=== PATIENT | male | born 1985 | race Caucasian/White ===

== ENCOUNTER 2019-03-02 10:48 | Outpatient (RCR) | payer MEDICARE, MEDICAID, SELFPAY ==
--- NOTE | 2019-03-02 11:52 | HP.PTEVAL ---
Patient's Visit Information DESTINEE CHOE is a 33 year old M referred to Physical Therapy by Delvis Shah MD with a diagnosis of CEREBRAL PALSY. Date of Evaluation: 03/02/19 Physical Therapist: Kahlil Sullivan PT, Cert MDT, OCS - Visit Plan Frequency: 1 VISIT Plan: RECOMMEND NEW MANUAL W/C .PATIENT IS DEPENDANT WITH ALL TRANSFERS,ADL'S AND SELF HYGINE. - Subjective Findings: This 33 y/o male presents to physical therapy with cerebral palsy. This patient is canidate for new w/c. Pateint is non verbal. Patient is dependant with all transfers, bed moblity with min WB using pivot w/c. Non ambulatory ,in w/c all day/ Requires dependant with all ADL'S bathing,feeding,dressing.Doesnt express pain. HOME SITUATUION: Foster home - Objective POSTURE: posterior pelvic tilt,scoliosis ,round shoulders,head tilted. BED MOBLITY: dependant supine-sit. TRANSFERS: dependant pivot with min WB with person. SITTING: absent. MMT BUE/LE patient is able to move UE with commond other 0/5 unable to repond with direction. NEURO: spastic lower extremities. FLEXABLITY: hams mod severe tight,hip add severe tight. PROM: knee flexion contractures left 50 degrees,right 40 degrees,knee flexion 115 degrees, hip flexion 110 degrees,DF 0 degrees,hip abduction 15 degrees. PROM: BUE WFL - Goals Goal 1:: RECOMMEND MANUAL W/C. - Rehabilitation Potential Physical Therapy Diagnosis: This patient has cerebral palsy with and dependant with all ADL'S,transfers,self hygine,non ambulatory thus requires new manual w/c. Rehabilitation Potential: Fair - Anticipated Interventions Patient/Client Instruction: Educate patient on: Plan of Care Other: W/C Thank you for the opportunity to evaluate your patient. For Medicare and Medicare HMO plans, please review the plan of care and approve it. It will need to be FAXED BACK to us at [phone] for Medicare purposes. For Medicare only, by signing this I certify the plan of care. Please let me know if there are questions or concerns regarding this plan of care. Physician Signature: Date:
== END 2019-03-02 19:00 | disposition home or self-care (01) ==
LOC: PT 10:48
PROVIDERS: Family Provider Family Medicine; PCP Family Medicine; Referring Provider Family Medicine; Visit Provider Family Medicine
DX: G80.9 Cerebral palsy, unspecified (principal)
CPT/HCPCS: 97163

== ENCOUNTER → 2019-05-19 13:59 | Outpatient (CLI) | payer MEDICARE, MEDICAID, SELFPAY ==
[2019-05-19 14:20] LABS: Absolute Lymphocyte Count 2.68 X10^3/uL (0.83-4.51); Absolute Neutrophil Count 2.2 X10^3/uL (2.0-7.7); Basophil# 0.02 X10^3/uL; Basophil% 0.4 % (0-1); Eosinophil# 0.19 X10^3/uL; Eosinophils% 3.4 % (0-5); Hematocrit 44.5 % (40-54); Hemoglobin 14.5 g/dL (13.0-16.5); Lymphocyte # 2.68 X10^3/ul (4.0); Lymphocyte % 47.6 % (19-41); Mean Corp Hgb Conc 32.6 g/dL (32-36); Mean Corpuscular Hgb 30.2 pg (27.0-32.0); Mean Corpuscular Volume 92.7 fL (80-94); Monocyte% 8.9 % (0-10); NRBC Flagged by Analyzer 0 % (0-5); Neutrophil # 2.23 X10^3/uL (2.7-7.7); Neutrophil % 39.5 % (47-70); Platelet Count 190 K/mm3 (150-450); RBC Distribution Width CV 12.9 % (11.6-14.6); RBC Distribution Width SD 44.1 fl (35.1-43.9); White Blood Count 5.6 K/mm3 (4.4-11.0)
[2019-05-19 14:35] LABS: AST(SGOT) 21 U/L (15-37); Alanine Aminotransfer ALT/SGPT 39 U/L (16-61); Albumin, Serum 3.7 g/dL (3.2-5.0); Alkaline Phosphatase 112 U/L (45-117); Anion Gap 5 (5-15); BUN 25 mg/dL (7-18); BUN/Creat Ratio 38.6 RATIO (10-20); Bilirubin, Direct 0.09 mg/dL (0.00-0.30); Calcium,Total 9.5 mg/dL (8.5-10.1); Chloride 108 mmol/L (98-107); Creatinine, Serum 0.65 mg/dL (0.70-1.30); EST Glomerular Filtration Rate 148 mL/min (>60); Est Glom Filt Rate - Afr Amer 180 mL/min (>60); Globulin 4.3 g/dL (2.2-4.2); Glucose 80 mg/dL (74-106); Potassium 4.2 mmol/L (3.5-5.1); Sodium Level 140 mmol/L (136-145)
[2019-05-19 15:23] LABS: Valproic Acid (Depakene) Level 93 ug/mL (50-100)
[2019-05-24 13:04] LABS: KEPPRA (LEVETIRACETAM) 29.2 ug/mL (10.0-40.0)
== END ==
PROVIDERS: Family Provider Family Medicine; PCP Family Medicine; Referring Provider Nurse Practitioner Family; Visit Provider Nurse Practitioner Family
DX: R56.9 Unspecified convulsions (principal)
CPT/HCPCS: 36415; 80048; 80076; 80164; 80177; 80184; 85025